=== PATIENT | male | born 1975 | race Caucasian/White ===

== ENCOUNTER 2018-04-27 16:51 | Emergency (ER) | payer OTHER ==
[2018-04-27] MEDS ORDERED: NS(*) 0.9% 1000 ML BAG 1,000 ML IV ONE (17:40)
[2018-04-27] MEDS ORDERED: KETOROLAC 30 MG/ML VIAL IVP ONE (17:40)
[2018-04-27] MEDS ORDERED: diphenhydrAMINE 50 MG/ML VIAL IVP ONE (17:40)
[2018-04-27] MEDS ORDERED: ORPHENADRINE 60MG/2ML INJ IVP ONE (17:40)
--- NOTE | 2018-04-27 17:40 | ER Report ---
History and Physical Time Seen By MD: 17:27 Hx. of Stated Complaint: PATIENT REPORTS A HEADACHE SINCE SATURDAY. THE PAIN IS MOVING INTO THE RIGHT SIDE OF HIS NECK. (ESVIN LAY MD) HPI/ROS CHIEF COMPLAINT: headache HISTORY OF PRESENT ILLNESS: This is a 43 year old male. He has had a headache for the last 5 days. He does get frequent headaches, but only has been to the ER on one previous time because of severe headache. He has pain in his neck as well, mainly the right side at the base of his skull and down toward his shoulder. This hurts worse with movement and palpation. He has pain and hypersensitivity on the right scalp area as well. Mild light sensitivity. Mild nausea but no vomiting. He has tried Ibuprofen and Tylenol as well as hot and cold and gentle massage. Nothing is helping. He denies any recent illness including fevers, chills, cough, runny nose, sore throat. He has been having tr ouble with constipation recently. He has been on a blood pressure medicine in the past, but was taken off after he had an EGD. Blood pressure was high today in triage, but uncertain if due to pain or true hypertension. No weakness or numbness in the extremities. No vision changes. (ESVIN LAY MD) Allergies: Coded Allergies: No Known Drug Allergies (Unverified , 04/27/18) Reviewed Nurses Notes: Yes (ESVIN LAY MD) Constitutional Vital Sign - Last 24 Hours 04/27/18 17:04 Temp 98.1 Pulse 101 Resp 20 B/P (MAP) 134/107 O2 Delivery Room Air (BARB MEJIA MD) Physical Exam General Appearance: The patient is alert. He is having some acute distress due to pain. Eyes: Pupils are equal, round. Reactive to light. No pallor or icterus, but he does have some injection of the sclera. Extraocular movements are intact. He has some photophobia, and some eye irritation with looking upward. ENT: Mucous membranes are moist. Normal oral mucosa. Posterior oropharynx is normal. Normal tympanic membranes and canals. Neck: Supple and non tender anterior throat area. No lymphadenopathy. Respiratory: Lungs are clear to auscultation. Cardiovascular: Regular rate and rhythm. No murmurs, gallops or rubs. Normal capillary refill. Neurological: Alert and oriented x3. No cranial nerve deficits. Hypersensitive on the scalp on the right. No focal neurologic deficits in the extremities. Skin: Warm and dry. No rashes. Musculoskeletal: Extremities are nontender. Has pain at the base of the skull on the right side, with pain diffusely into the shoulders as well as some across the midline to the left neck, but this is mild. Pain does worsen with range of motion, but no definite signs of meningitis at this time. DIFFERENTIAL DIAGNOSIS: After history and physical exam, differential diagnosis was considered for headache including but not limited to subarachnoid hemorrhage, migraine headache, tension headache and infectious causes such as meningitis, pharyngitis and sinusitis. ([facility]) Medical Decision Making Data Points Result Diagram: 04/27/18 1748 04/27/18 1748 Laboratory Hematology Test 04/27/18 17:48 Red Blood Count 6.70 M/uL (4.00-5.60) Mean Corpuscular Volume 94.9 fL (80.0-96.0) Mean Corpuscular Hemoglobin 32.3 pg (26.0-33.0) Mean Corpuscular Hemoglobin Concent 34.1 g/dL (32.0-36.0) Red Cell Distribution Width 15.8 % (11.5-14.5) Mean Platelet Volume 9.1 fL (7.2-11.1) Neutrophils (%) (Auto) 70.6 % (39.4-72.5) Lymphocytes (%) (Auto) 14.5 % (17.6-49.6) Monocytes (%) (Auto) 9.7 % (4.1-12.4) Eosinophils (%) (Auto) 3.8 % (0.4-6.7) Basophils (%) (Auto) 1.4 % (0.3-1.4) Nucleated RBC Relative Count (auto) 0.1 /100WBC Neutrophils # (Auto) 5.8 K/uL (2.0-7.4) Lymphocytes # (Auto) 1.2 K/uL (1.3-3.6) Monocytes # (Auto) 0.8 K/uL (0.3-1.0) Eosinophils # (Auto) 0.3 K/uL (0.0-0.5) Basophils # (Auto) 0.1 K/uL (0.0-0.1) Nucleated RBC Absolute Count (auto) 0.01 K/uL Erythrocyte Sedimentation Rate 1 mm/HOUR (0-15) Sodium Level 141 mmol/L (137-145) Potassium Level 4.1 mmol/L (3.5-5.0) Chloride Level 106 mmol/L (98-107) Carbon Dioxide Level 24 mmol/L (22-30) Blood Urea Nitrogen 8 mg/dl (9-21) Creatinine 1.30 mg/dl (0.66-1.25) Glomerular Filtration Rate Calc > 60.0 Random Glucose 104 mg/dl (75-110) Calcium Level 10.2 mg/dl (8.4-10.2) Total Bilirubin 0.9 mg/dl (0.2-1.3) Aspartate Amino Transf (AST/SGOT) 68 U/L (0-35) Alanine Aminotransferase (ALT/SGPT) 210 U/L (0-56) Alkaline Phosphatase 73 U/L (0-126) C-Reactive Protein < 0.5 mg/dl (<1.0) Total Protein 7.4 g/dl (6.3-8.2) Albumin 4.3 g/dl (3.5-5.0) Chemistry Test 04/27/18 17:48 White Blood Count 8.2 k/uL (4.5-11.0) Red Blood Count 6.70 M/uL (4.00-5.60) Hemoglobin 21.7 g/dL (14.0-18.0) Hematocrit 63.6 % (42.0-52.0) Mean Corpuscular Volume 94.9 fL (80.0-96.0) Mean Corpuscular Hemoglobin 32.3 pg (26.0-33.0) Mean Corpuscular Hemoglobin Concent 34.1 g/dL (32.0-36.0) Red Cell Distribution Width 15.8 % (11.5-14.5) Platelet Count 232 K/uL (150-450) Mean Platelet Volume 9.1 fL (7.2-11.1) Neutrophils (%) (Auto) 70.6 % (39.4-72.5) Lymphocytes (%) (Auto) 14.5 % (17.6-49.6) Monocytes (%) (Auto) 9.7 % (4.1-12.4) Eosinophils (%) (Auto) 3.8 % (0.4-6.7) Basophils (%) (Auto) 1.4 % (0.3-1.4) Nucleated RBC Relative Count (auto) 0.1 /100WBC Neutrophils # (Auto) 5.8 K/uL (2.0-7.4) Lymphocytes # (Auto) 1.2 K/uL (1.3-3.6) Monocytes # (Auto) 0.8 K/uL (0.3-1.0) Eosinophils # (Auto) 0.3 K/uL (0.0-0.5) Basophils # (Auto) 0.1 K/uL (0.0-0.1) Nucleated RBC Absolute Count (auto) 0.01 K/uL Erythrocyte Sedimentation Rate 1 mm/HOUR (0-15) Glomerular Filtration Rate Calc > 60.0 Calcium Level 10.2 mg/dl (8.4-10.2) Total Bilirubin 0.9 mg/dl (0.2-1.3) Aspartate Amino Transf (AST/SGOT) 68 U/L (0-35) Alanine Aminotransferase (ALT/SGPT) 210 U/L (0-56) Alkaline Phosphatase 73 U/L (0-126) C-Reactive Protein < 0.5 mg/dl (<1.0) Total Protein 7.4 g/dl (6.3-8.2) Albumin 4.3 g/dl (3.5-5.0) (BARB MEJIA MD) ED Course/Re-evaluation Clinical Indication for ER IV: IV Access Turned Over The care of the patient was turned over to Dr. Mejia. Esivn Lay M.D. I authorize my typed signature that I authenticated this report. (ESVIN LAY MD) ED Course Mr. Khalil was turned over to me at [address] Lay. On my reassessment he had a headache that is similar to multiple prior that he gets once to twice a week. Patient noted that this headache started Saturday and has been constant since Saturday. Other than being gradually more severe and lasting longer, there were no new or different features. Patient notes that pain radiates from neck on right side and through right side of scalp. On my exam patient had completely reproducible tenderness at the insertion of the trapezius and occipital nerve on the right. Patient had partial relief with IV medications that were administered. I reviewed remainder of exam and labs. I did note that patient has some polycythemia. Patient is aware of this however I instructed him to follow-up at the [facility] for further evaluation as this may be increasing. Patient is also aware that he has mild renal insufficiency as well as elevated liver function tests. I do not believe that any of these are acutely attributing to headache, however patient does require follow-up and further evaluation. After occipital nerve block patient experienced complete relief. At this point I doubt patient has meningitis, encephalitis, subarachnoid hemorrhage, or other emergent etiology of headache. Procedure Procedure: Occipital nerve block Indication: Trigger point tenderness to palpation at right occipital nerve. Consent: Verbal after discussion of risks and benefits Preparation: Standard sterile preparation was performed Performance: After sterile prep, I injected 2 mL's of a 50% combination of 2% l idocaine and 0.5% bupivacaine just inferior to the right occipital nerve exit at the insertion of the right trapezius. Complications: None patient tolerated procedure very well and noted immediate pain relief after procedure. Decision to Disposition Date: Apr 27, 2018 Decision to Disposition Time: 18:46 (BARB MEJIA MD) Depart Departure Latest Vital Signs Vital Signs Date Time Temp Pulse Resp B/P (MAP) Pulse Ox O2 Delivery O2 Flow Rate FiO2 04/27/18 17:04 98.1 101 20 134/107 Room Air (BARB MEJIA MD) Impression: Primary Impression: Headache Additional Impressions: Renal insufficiency Polycythemia Elevated LFTs Condition: Improved Disposition: HOME OR SELF-CARE Patient Instructions: Acute Headache (ED) Additional Instructions: As we discussed, please return for any new or different or concerning headache or other symptoms. It is important to follow up with her primary doctor within one week for further evaluation of the lab abnormalities that we discussed. You noted that you have had prior abnormalities in your red cell count, liver function test, and creatinine; today's results are as follows: Hgb/Hct:21.7/63.6 Creatinine: 1.30 AST: 68 ALT: 210 Please discuss these with your primary doctor as well as the need for further testing. Problem Qualifiers Primary Impression: Headache Headache chronicity pattern: acute headache Intractability: not intractable ESVIN LAY MD Apr 27, 2018 17:40 BARB MEJIA MD Apr 27, 2018 18:50
[2018-04-27 18:10] LABS: PLATELET COUNT, AUTOMATED 232 K/uL (150-450)
[2018-04-27 18:30] VITALS: BP 133/98
[2018-04-28] MEDS ORDERED: TRAM-420 PO (19:48)
[2018-04-28] MEDS ORDERED: METH-543 PO (19:48)
== END 2018-04-27 18:54 | disposition home or self-care (01) ==
LOC: ER 17:30
DX: R51 Headache (principal); N18.9 Chronic kidney disease, unspecified; D75.1 Secondary polycythemia; R79.89 Other specified abnormal findings of blood chemistry
CPT/HCPCS: 64405; 85025; 85651; 86140; 96361; 96374; 96375; 99284; J1885; J2360; J7030; 82040; 82247; 82310; 82374; 82435; 82565; 82947; 84075; 84132; 84155; 84295; 84450; 84460; 84520

== ENCOUNTER 2018-04-28 18:41 | Emergency (ER) | payer OTHER ==
--- NOTE | 2018-04-28 18:43 | ER Report ---
History and Physical Time Seen By MD: 18:43 HPI/ROS CHIEF COMPLAINT: Right-sided headache HISTORY OF PRESENT ILLNESS: 43-year-old male seen here in the ER yesterday with an extensive evaluation. Patient had a negative CRP and sedimentation rate. Patient has recurring headaches once or twice weekly. He has photophobia. He d enies nausea or vomiting. He denies fever or chills. His white blood cell count was normal yesterday. He has not had a CAT scan of his head. He notes extreme pain with movement of his head. There was trigger point injections performed last night which relieved his headache for several hours but then it returned. REVIEW OF SYSTEMS: Respiratory: No cough, no dyspnea. Cardiovascular: No chest pain, no palpitations. Gastrointestinal: No vomiting, no abdominal pain. Musculoskeletal: As above Allergies: Coded Allergies: No Known Drug Allergies (Unverified , 04/28/18) Home Meds Active Scripts Methocarbamol (ROBAXIN-750) 750 Mg Tablet, 1-2 TAB PO TID PRN for muscle spasm relief, #15 Prov:SHANEKA DEL CID DO 04/28/18 Tramadol Hcl (TRAMADOL HCL) 50 Mg Tablet, 1 TAB PO Q6H for pain relief, #12 MG TAKE ONE TABLETS BY MOUTH EVERY SIX HOURS NEEDED Prov:SHANEKA DEL CID DO 04/28/18 Reviewed Nurses Notes: Yes Old Medical Records Reviewed: Yes Constitutional Vital Sign - Last 24 Hours 04/28/18 04/28/18 04/28/18 04/28/18 18:45 18:56 19:00 19:11 Temp 98.7 Pulse 97 90 87 Resp 24 B/P (MAP) 158/94 145/98 (114) Pulse Ox 92 89 88 O2 Delivery Room Air 04/28/18 04/28/18 04/28/18 04/28/18 19:30 19:41 19:46 19:51 Pulse 87 86 87 B/P (MAP) 155/110 (125) Pulse Ox 87 91 90 Physical Exam General Appearance: The patient is alert, has no immediate need for airway protection and no current signs of toxicity. Vital signs stable, afebrile, pu lse ox normal HEENT: Pupils equal and round no injection. TMs normal, oropharynx without redness or exudate, mucous. Membranes are moist Respiratory: Chest is non tender, lungs are clear to auscultation. Cardiac: regular rate and rhythm Gastrointestinal: Abdomen is soft and non tender, no masses, bowel sounds normal. Musculoskeletal: Neck: Neck is supple and non tender. No lymphadenopathy, no meningismus Extremities have full range of motion and are non tender. Skin: No rashes or lesions. Neuro: Alert and oriented 3, cranial nerves II through XII intact motor 5/5 all groups, sensory intact 4, cerebellum intact grossly DIFFERENTIAL DIAGNOSIS: After history and physical exam differential diagnosis was considered for headache including but not limited to subarachnoid hemorrhage, migraine headache, tension headache and infectious causes such as meningitis, pharyngitis and sinusitis. Medical Decision Making EKG/Imaging Imaging Results: CT scan of the head was obtained. The results of the study are no acute findings. The study was read by the radiologist. I viewed the images myself on the PACS system. ED Course/Re-evaluation ED Course Patient was admitted to an examination room. H&P was done. The differential diagnoses was considered. On clinical examination, patient is a nonfocal neurologic examination. He has right-sided recurrent headaches aggravated by movement. There is tenderness on palpation of the muscles. Patient had good relief with trigger point injections last night. I suspect he suffering a tension headache. A CAT scan was performed which was unremarkable. Patient will be treated symptomatically with muscle relaxants and pain relievers. He is also given Decadron 12 mg here in the ER. Patient advised to follow-up at the [facility] Decision to Disposition Date: Apr 28, 2018 Decision to Disposition Time: 19:45 Depart Departure Latest Vital Signs Vital Signs Date Time Temp Pulse Resp B/P (MAP) Pulse Ox O2 Delivery O2 Flow Rate FiO2 04/28/18 19:51 87 90 04/28/18 19:30 155/110 (125) 04/28/18 18:45 98.7 24 Room Air Impression: Primary Impression: Tension type headache Additional Impression: Polycythemia Condition: Improved Disposition: HOME OR SELF-CARE New Scripts Methocarbamol (ROBAXIN-750) 750 Mg Tablet 1-2 TAB PO TID PRN for muscle spasm relief, #15 Prov: SHANEKA DEL CID DO 04/28/18 Tramadol Hcl (TRAMADOL HCL) 50 Mg Tablet 1 TAB PO Q6H for pain relief, #12 MG TAKE ONE TABLETS BY MOUTH EVERY SIX HOURS NEEDED Prov: SHANEKA DEL CID DO 04/28/18 Patient Instructions: Acute Headache (ED) Additional Instructions: Take ibuprofen 200 mg 3 tablets 3 times a day with food Apply heating pad to your neck to help the muscles relax [facility] if unim[facility] 3-5 days Problem Qualifiers Primary Impression: Tension type headache Headache chronicity pattern: acute headache Intractability: intractable Qualified Codes: G44.201 - Tension-type headache, unspecified, intractable SHANEKA DEL CID DO Apr 28, 2018 18:43
[2018-04-28] MEDS ORDERED: DEXAMETHASONE 4 MG TAB PO ONE (19:10)
[2018-04-28] MEDS ORDERED: traMADol 50 MG TAB PO ONE (19:10)
[2018-04-28] MEDS ORDERED: METHOCARBAMOL 500 MG TAB PO ONE (19:10)
[2018-04-28 19:30] VITALS: BP 155/110
--- NOTE | 2018-04-28 19:42 | RADIOLOGY IMAGING REPORT ---
FACILITY: [facility] PATIENT NAME: Piyush Rodriguez : 1975 MR: [id number] V: [id number] EXAM DATE: ORDERING PHYSICIAN: SHANEKA DEL CID TECHNOLOGIST: Location: [facility] - [place] Patient: Piyush Rodriguez : 1975 Visit/Account:[id number] Date of Sevice: 04/28/2018 HEAD W/O CONTRAST EXAMINATION: CT head/brain without contrast HISTORY: Headache TECHNIQUE: Contiguous axial images were obtained from the skull base to the vertex without intravenou s contrast. One of the following dose optimization techniques was utilized in the performance of this exam: Autom ated exposure control; adjustment of the mA and/or kV according to the patient's size; or use of an i terative reconstruction technique. Specific details can be referenced in the facility's radiology C T exam operational policy. COMPARISON STUDIES: None FINDINGS: Ventricles/sulci/fissures: Negative Masses/hemorrhage/midline shift: Negative White matter: Negative Hernandez-white differentiation: Negative Extra-axial spaces: Negative Dural venous sinuses/arterial structures: Negative Skull base/calvarium: Negative Visualized mastoid air cells/paranasal sinuses: Left maxillary sinus mucus retention cyst or polyp me asuring 1 cm IMPRESSION: 1. Negative CT scan of the head for acute intracranial pathology. Report Dictated By: Nas Lopez MD at 04/28/2018 7:36 PM Report E-Signed By: Nas Lopez MD at 04/28/2018 7:39 PM [id number]
[2018-04-28] MEDS ORDERED: TRAM-420 PO (19:48)
[2018-04-28] MEDS ORDERED: METH-543 PO (19:48)
== END 2018-04-28 19:56 | disposition home or self-care (01) ==
LOC: ER 18:56
DX: G44.201 Tension-type headache, unspecified, intractable (principal); D75.1 Secondary polycythemia
CPT/HCPCS: 70450; 99284; J8540